=== PATIENT | male | born 1955 | race Caucasian/White ===

== ENCOUNTER 2019-03-20 18:21 | Emergency (ER) | payer BC, OTHER ==
--- NOTE | 2019-03-20 19:27 | CR ---
Chest: Portable view of the chest was obtained. Comparison: No previous chest x-ray. Old healed right clavicle fracture is noted. Heart size and mediastinum are normal in appearance. Lungs are clear with no acute parenchymal change. Impression: 1. Nothing acute is appreciated on portable chest x-ray. Diagnostic code #2 This report was dictated in [place] Standard Time
--- NOTE | 2019-03-20 19:53 | EDM.PDOC ---
ED HPI GENERAL MEDICAL PROBLEM - General Chief Complaint: Chest Pain Stated Complaint: CHEST PAINS Time Seen by Provider: 03/20/19 19:50 Source of Information: Reports: Patient History Limitations: Reports: No Limitations - History of Present Illness INITIAL COMMENTS - FREE TEXT/NARRATIVE: HISTORY AND PHYSICAL: History of present illness: Patient is 63-year-old male who presents to the emergency room today with complaints of right-sided chest pain. He states approximately a week ago while driving he developed chest pain that lasted approximately 30 minutes which he states was more severe than today's episode. The pain went away on its own and he had thought nothing of it. Prior to arrival he had another episode which he describes as a dull pressure to his right anterior chest slightly wrapping into his axillary area. Currently pain-free. States nothing improved the pain are made the pain worse. No previous history of heart disease. No significant family history of heart disease. Denies any tobacco use. Patient denies any fever, chills, headache, change in vision, syncope or near syncope. Denies any back pain, shortness of breath or cough. Denies any abdominal pain, nausea, vomiting, diarrhea, constipation or dysuria. Has not noted any blood in urine or stool. Patient has been eating and drinking appropriately. Review of systems: As per history of present illness and below otherwise all systems reviewed and negative. Past medical history: As per history of present illness and as reviewed below otherwise noncontributory. Surgical history: As per history of present illness and as reviewed below otherwise noncontributory. Social history: See social history for further information Family history: As per history of present illness and as reviewed below otherwise noncontributory. Physical exam: General: Well-developed and well-nourished 63-year-old male. Alert and oriented. Nontoxic-appearing and in no acute distress. HEENT: Atraumatic, normocephalic, pupils equal and reactive bilaterally, negative for conjunctival pallor or scleral icterus, mucous membranes moist, TMs normal bilaterally, throat clear, neck supple, nontender, trachea midline. No drooling or trismus noted. No meningeal signs. No hot potato voice noted. Lungs: Clear to auscultation, breath sounds equal bilaterally, chest nontender. Heart: S1S2, regular rate and rhythm without overt murmur Abdomen: Soft, nondistended, nontender. Negative for masses or hepatosplenomegaly. Negative for costovertebral tenderness. Skin: Intact, warm, dry. No lesions or rashes noted. Extremities: Atraumatic, moves all extremities per self without difficulty or deficits, negative for cords or calf pain. Neurovascular unremarkable. Neuro: Awake, alert, oriented. Cranial nerves II through XII unremarkable. Cerebellum unremarkable. Motor and sensory unremarkable throughout. Exam nonfocal. Notes: Patient has been pain-free while here in the emergency room lab work, chest x- ray and EKG are unremarkable. I did offer him admission for rule out serial troponins. He declines. We did discuss the importance of close follow-up with cardiology. He voices understanding. We discussed signs and symptoms that would prompt him to return to the emergency room. Supportive care measures were reviewed and discussed. Voices understanding and is agreeable to plan of care. Denies any further questions or concerns at this time. Diagnostics: CBC, CMP, troponin, EKG, 1 view chest Therapeutics: None Prescription: None Impression: Chest pain, unspecified Plan: 1. Please start an 81 mg aspirin once daily 2. Please follow-up with your primary care provider as we discussed. I would like you to follow-up with a delivery mgr for reevaluation and further management. 3. Return to the ED as needed and as discussed. Definitive disposition and diagnosis as appropriate pending reevaluation and review of above. chest Pain Score (Numeric/FACES): 3 - Related Data Allergies Allergy/AdvReac Type Severity Reaction Status Date / Time bee venom protein (honey bee) Allergy Anaphylactic Verified 03/20/19 18:26 Shock Home Meds: Home Meds Finasteride 5 mg PO DAILY 03/20/19 [History] Past Medical History Musculoskeletal History: Reports: Fracture Other Musculoskeletal History: R hand fx and surgery - Infectious Disease History Infectious Disease History: Reports: Chicken Pox, Measles, Mumps - Past Surgical History GI Surgical History: Reports: Hernia, Inguinal, Hernia Repair/Other Social & Family History - Family History Family Medical History: Noncontributory - Tobacco Use Smoking Status *Q: Former Smoker Years of Tobacco use: 7 Packs/Tins Daily: 1 Used Tobacco, but Quit: Yes Month/Year Tobacco Last Used: 40years - Caffeine Use Caffeine Use: Reports: None - Recreational Drug Use Recreational Drug Use: No ED ROS GENERAL - Review of Systems Review Of Systems: Comprehensive ROS is negative, except as noted in HPI. ED EXAM, GENERAL - Physical Exam Exam: See Below (See dictation) Course - Vital Signs Last Recorded V/S: Last Vital Signs Temp 97.4 F 03/20/19 18:27 Pulse 67 03/20/19 19:49 Resp 16 03/20/19 19:49 BP 137/82 03/20/19 19:49 Pulse Ox 96 03/20/19 19:49 - Orders/Labs/Meds Orders: Active Orders 24 hr Category Date Time Status EKG Documentation Completion [RC] STAT Care 03/20/19 18:48 Active Labs: Laboratory Tests 03/20/19 03/20/19 Range/Units 18:22 18:22 WBC 6.53 (4.0-11.0) K/uL RBC 5.37 (4.50-5.90) M/uL Hgb 16.3 (13.0-17.0) g/dL Hct 47.4 (38.0-50.0) % MCV 88.3 (80.0-98.0) fL MCH 30.4 (27.0-32.0) pg MCHC 34.4 (31.0-37.0) g/dL RDW Std Deviation 40.6 (28.0-62.0) fl RDW Coeff of Annette 13 (11.0-15.0) % Plt Count 231 (150-400) K/uL MPV 10.80 (7.40-12.00) fL Neut % (Auto) 46.1 L (48.0-80.0) % Lymph % (Auto) 34.9 (16.0-40.0) % Vigo % (Auto) 11.6 (0.0-15.0) % Eos % (Auto) 5.7 (0.0-7.0) % Baso % (Auto) 1.7 H (0.0-1.5) % Neut # (Auto) 3.0 (1.4-5.7) K/uL Lymph # (Auto) 2.3 (0.6-2.4) K/uL Vigo # (Auto) 0.8 (0.0-0.8) K/uL Eos # (Auto) 0.4 (0.0-0.7) K/uL Baso # (Auto) 0.1 (0.0-0.1) K/uL Nucleated RBC % 0.0 /100WBC Nucleated RBCs # 0 K/uL Sodium 139 (136-148) mmol/L Potassium 4.0 (3.5-5.1) mmol/L Chloride 101 (98-107) mmol/L Carbon Dioxide 30.2 (21.0-32.0) mmol/L BUN 14 (7.0-18.0) mg/dL Creatinine 0.9 (0.8-1.3) mg/dL Est Cr Clr Drug Dosing 86.74 mL/min Estimated GFR (MDRD) > 60.0 ml/min Glucose 86 (74-106) mg/dL Calcium 8.9 (8.5-10.1) mg/dL Total Bilirubin 0.4 (0.2-1.0) mg/dL AST 22 (15-37) IU/L ALT 37 (14-63) IU/L Alkaline Phosphatase 62 (46-116) U/L Troponin I < 0.050 (0.000-0.056) ng/mL Total Protein 7.6 (6.4-8.2) g/dL Albumin 4.1 (3.4-5.0) g/dL Globulin 3.5 (2.6-4.0) g/dL Albumin/Globulin Ratio 1.2 (0.9-1.6) Departure - Departure Time of Disposition: 20:03 Disposition: Home, Self-Care 01 Clinical Impression: Chest pain, unspecified Qualifiers: Chest pain type: unspecified Qualified Code(s): R07.9 - Chest pain, unspecified Referrals: PCP,Not In Area [Primary Care Provider] - Forms: ED Department Discharge Additional Instructions: The following information is given to patients seen in the emergency department who are being discharged to home. This information is to outline your options for follow-up care. We provide all patients seen in our emergency department with a follow-up referral. The need for follow-up, as well as the timing and circumstances, are variable depending upon the specifics of your emergency department visit. If you don't have a primary care physician on staff, we will provide you with a referral. We always advise you to contact your personal physician following an emergency department visit to inform them of the circumstance of the visit and for follow-up with them and/or the need for any referrals to a consulting specialist. The emergency department will also refer you to a specialist when appropriate. This referral assures that you have the opportunity for follow-up care with a specialist. All of these measure are taken in an effort to provide you with optimal care, which includes your follow-up. Under all circumstances we always encourage you to contact your private physician who remains a resource for coordinating your care. When calling for follow-up care, please make the office aware that this follow-up is from your recent emergency room visit. If for any reason you are refused follow-up, please contact the [facility] Emergency Department at and asked to speak to the emergency department charge nurse. [facility] [address] [place] [id number] [id number] 1. Please start an 81 mg aspirin once daily 2. Please follow-up with your primary care provider as we discussed. I would like you to follow-up with a delivery mgr for reevaluation and further management. 3. Return to the ED as needed and as discussed. Sepsis Event Note - Evaluation Sepsis Screening Result: No Definite Risk - Focused Exam Vital Signs: Vital Signs Temp Pulse Resp BP Pulse Ox 03/20/19 19:49 67 16 137/82 96 03/20/19 18:27 97.4 F 72 16 146/91 H 95 Date Exam was Performed: 03/20/19 Time Exam was Performed: 20:02 - My Orders Last 24 Hours: My Active Orders 03/20/19 18:48 EKG Documentation Completion [RC] STAT - Assessment/Plan Last 24 Hours: My Active Orders 03/20/19 18:48 EKG Documentation Completion [RC] STAT
[2019-03-20 19:55] LABS: BLOOD UREA NITROGEN,BUN 14 mg/dL (7.0-18.0); CARBON DIOXIDE,CO2 30.2 mmol/L (21.0-32.0); CHLORIDE,CL 101 mmol/L (98-107); GLUCOSE RANDOM 86 mg/dL (74-106); SODIUM,NA 139 mmol/L (136-148)
== END 2019-03-20 20:16 | disposition home or self-care (01) ==
LOC: MW.ED 18:21
DX: R07.9 Chest pain, unspecified (principal); Z87.891 Personal history of nicotine dependence; Z91.030 Bee allergy status
CPT/HCPCS: 71045; 71045-26; 80053; 84484; 85025; 93005; 99283; 99285-25